=== PATIENT | male | born 1955 | race Caucasian/White ===

== ENCOUNTER 2023-11-03 08:19 | Outpatient (CLI) | payer MEDICARE, SELFPAY ==
--- NOTE | ~2023-11-03 | CT_ITS ---
EXAMINATION: CT sinus wo con DATE: 11/03/2023 08:38 INDICATION: Cough TECHNIQUE: Computed tomography (CT) of the paranasal sinuses was performed without intravenous contra st. The dose-length product was 295.03 mGy-cm. Automated exposure control and iterative reconstructio n technique were employed. COMPARISON: None FINDINGS: No significant mucosal thickening. No air-fluid levels. No mucoperiosteal reaction. Leftwar d nasal septal deviation. Ostiomeatal units are patent. Mastoids are pneumatized. IMPRESSION: 1. No significant sinus disease. Reviewed, dictated and finalized at location B.
== END 2023-11-03 08:20 | disposition home or self-care (01) ==
LOC: ANHIMG 08:24
PROVIDERS: PCP Physician Assistant Medical; Visit Provider Physician Assistant Medical
DX: R05.9 Cough, unspecified (principal); J32.9 Chronic sinusitis, unspecified
CPT/HCPCS: 70486

== ENCOUNTER 2025-02-28 07:10 | Day surgery (SDC) | payer MEDICARE, SELFPAY ==
[2025-02-19 14:08] VITALS: BMI 30.4
--- NOTE | 2025-02-19 14:19 | PC.NURSE ---
Spoke with _SPOUSE/PATIENT_ regarding medication _ELIQUIS. _They verbalizes understanding that the last dose is to be taken on 02/25/2025 and the Endoscopist will instruct them when to restart after the procedure.
--- OUTSIDE RECORDS SUMMARY | 2025-02-28 07:16 | XMS_ITS | Clinical Summary ---
Author Organization [facility] Address Formerly [facility] [place] [address] Care Team Providers Care Sign Painter Helper Name Role Phone Suki Duval PA-C Primary Care Provider [phone] Allergies No known active allergies Medications diclofenac EC (VOLTAREN) 75 MG tablet Take 1 tablet (75 mg total) by mouth daily. 3 Active Pyh-Okp-RdMc-Me Vn-GQrv-Mpw-Uva (DIUREX OR) Active lisinopril (PRINIVIL) 5 MG tablet Take 1 tablet (5 mg total) by mouth daily. Active montelukast (SINGULAIR) 10 MG tablet Take 1 tablet (10 mg total) by mouth daily. 4 Active fluticasone propionate (FLONASE) 50 MCG/ACT nasal spray 4 Active ELIQUIS 5 MG tablet PLEASE SEE ATTACHED FOR DETAILED DIRECTIONS 4 Active Active Problems Problem Noted Date Diagnosed Date Chronic deep vein thrombosis (DVT) of femoral vein of left lower extremity ([facility]) 09/13/2022 Bilateral impacted cerumen 05/05/2021 Sensorineural hearing loss (SNHL) of both ears 1 Immunizations Immunization Administration Dates Next Due Influenza (Generic) 07/27/2020 PFIZER COVID-19 (ORIGINAL FO RMULATION, PURPLE CAP) mRNA, LNP-S, PF, 30 MCG/0.3 ML DOSE 03/12/2021,02/18/2021 Shingrix 07/27/2020 Tdap (Boostrix) 01/20/2023 Social History Tobacco Use Types Packs/Day Years Used Date Smoking Tobacco: Never Smokeless Tobacco: Never Tobacco Cessation:Counseling Given: Not Answered Alcohol Use Standard Drinks/Week Comments Yes 5.3 (1 standard drink = 0.6 oz p ure alcohol) Sex and Gender Information Value Date Recorded Sex Assigned at Not on file Legal Sex Male 7:05 PM CDT Gender Identity Not on file Sexual Orientation Not on file Last Filed Vital Signs Vital Sign Reading Time Taken Comments Blood Pressure 127/80 12/06/2023 9:17 AM CDT Pulse 88 12/06/2023 9:17 AM CDT Temperature 36.8 C (98.2 F) 11/20/2023 3:06 PM CDT Respiratory Rate 18 11/20/2023 3:06 PM CDT Oxygen Saturation 98% 11/20/2023 3:06 PM CDT Inhaled Oxygen Concentration - - Weight 112 kg (247 lb) 12/06/2023 9:17 AM CDT Height 182.9 cm (6') 12/06/2023 9:17 AM CDT Body Mass Index 33.5 12/06/2023 9:17 AM CDT Plan of Treatment Upcoming Encounters Date Type Department Care Team (Late st Contact Info) Description 03/19/2025 10:30 AM CDT Office Visit [facility] [id number] [place] [phone] Mitchell Byers MD [address] [id number] Health Maintenance Due Date Last Done Comments Colorectal Cancer Screening Colonoscopy (10 Years) 1955 Hepatitis C 10/20/1973 Pneumococcal Vaccine: 50+ Years (1 of 1 - PCV) 10/20/2005 RSV Immunization or 60+ Years (1 - Risk 60-74 years 1-dose series) 2015 Zoster Vaccines (2 of 2) 09/21/2020 07/27/2020 Annual Medicare Wellness Visit 10/20/2020 COVID-19 Vaccine (3 - 2023-2 5 season) 2024 03/12/2021, 02/18/2021 DTaP, Tdap and Td Vaccines ( 2 - Td or Tdap) 01/20/2033 01/20/2023 Meningococcal B Vaccine Aged Out No l onger eligible based on patient's age to complete this topic Meningococcal Vaccine Aged Out No star hattie eligible based on patient's age to complete this topic RSV Immunizations Under 20 Months Aged Out No longer eligible b ased on patient's age to complete this topic Insurance MEDICARE AETNA Care Teams Sign Painter Helper Relationship Specialty Start Date End Date Suki Duval PA-C [address] [place] [address] [address] [place] [address] PCP - General PHYSICIAN PIGGERY WORKER 08/05/22
--- OUTSIDE RECORDS SUMMARY | 2025-02-28 07:16 | XMS_ITS | Encounter Summary ---
Author Organization [facility] Address [address] [place] [address] Care Team Providers Care Press Operator Automatic Name Role Phone Suki Duval PA-C Primary Care Provider [phone] Encounter Details Date Type Department Care Team (Late st Contact Info) Description 10/27/2022 [facility] [place] [address] [facility] [place] [address] Suki Duval PA-C [address] [place], [place] [id number] Social History Tobacco Use Types Packs/Day Years Used Date Smoking Tobacco: Never Assessed Sex and Gender Information Value Date Recorded Sex Assigned at Not on file Legal Sex Male 7:05 PM CDT Gender Identity Not on file Sexual Orientation Not on file COVID-19 Exposure Response Date Recorded In the last 10 days, have yo u been in contact with someone who was confirmed or suspected to have Coronavirus/COVID-19? No / Unsure 2022 7:46 AM CDT documented as of this encounter Plan of Treatment Upcoming Encounters Date Type Department Care Team (Late st Contact Info) Description 03/19/2025 10:30 AM CDT Office Visit [facility] [address] [place] [phone] Mitchell Byers MD [id number] [place] [address] documented as of this encounter Visit Diagnoses Not on filedocumented in this encounter Care Teams Press Operator Automatic Relationship Specialty Start Date End Date Suki Duval PA-C [address] [place] [address] [address] [place] [address] PCP - General PHYSICIAN CLINICAL HAEMATOLOGIST 08/05/22 documented as of this encounter
--- OUTSIDE RECORDS SUMMARY | 2025-02-28 07:16 | XMS_ITS | Continuity of Care Document ---
Author Organization [facility] Address [address] [facility] [address] [place] [address] Phone Care Team Providers Care Medical Nurse Name Role Phone Geraldo Hewitt MD Unavailable Unavailable Medications Medication Instructions Dosage Effective Dates (start - stop) Status Comments Le Roy 7.5 mg-325 mg tablet take 1 to 2 tablets by oral route every 6 hours as needed for pain - Active Le Roy 7.5 mg-325 mg tablet take 1 to 2 tablets by oral route every 6 hours as needed for pain - No Longer Active Advance Directives Directive Yes / No Effective Date File Name No Information Encounters Encounter Description Practice Location Reason(s) For Visit Diagnoses Date Provider Providers Copied on Encounter [facility], [address] [place] [address], [facility], tel:[phone] [facility] No Information 4 Marcelina Chow. [address] [place] [address], [id number] . tel: [phone] [facility], [address] [place] [address], [facility], tel:[phone] [facility] No Information 4 Marcelina Chow. [address] [place] [address], [id number] . tel: [phone] Family History Family Member Type Diagnosis Age At Onset No Information Payers Payer name Insurance type Covered alliance party ID Authoriza tion(s) No Information Social History Type Description Quantity Date Captured Comments Sex Male Smoking Status No Information Chief Complaint And Reason For Visit No Information Reason For Referral Reason For Referral No Information History Of Present Illness Encounter Date Complaint History Of Prese nt Illness No Information Functional Status Date Functional Assessmen t No Information Instructions Date Instruction Additional Infor mation No Information Assessments Type Assessment Date No Information Patient Care Teams Name Effective Dates (start - stop) Status Members No Information
--- OUTSIDE RECORDS SUMMARY | 2025-02-28 07:16 | XMS_ITS | Clinical Summary ---
Author Organization [facility] Address [address] [place] [address] Care Team Providers Care Space Engineer Name Role Phone Dawson Ortiz MD Primary Care Provider [phone] Allergies No known active allergies Medications No known medications Active Problems Problem Noted Date Diagnosed Date Sensorineural hearing loss (SNHL) of both ears 1 Bilateral impacted cerumen 05/05/2021 Surgical History Surgery Date Site/Laterality Comments BACK SURGERY ARM SURGERY Right LASIK LUMBAR FUSION Medical History Medical History Date Comments Hypertension Social History Tobacco Use Types Packs/Day Years Used Date Smoking Tobacco: Never Smokeless Tobacco: Never Personal Safety Answer Date Recorded Getting School Help Needed Not on file 09/10 Sex and Gender Information Value Date Recorded Sex Assigned at Not on file Legal Sex Male 1:34 AM AMPOULE EXAMINER Gender Identity Not on file Sexual Orientation Not on file Obstetrics History Last Filed Vital Signs Vital Sign Reading Time Taken Comments Blood Pressure - - Pulse - - Temperature 36.8 C (98.2 F) 05/04/2021 3:03 PM CDT Respiratory Rate - - Oxygen Saturation - - Inhaled Oxygen Concentration - - Weight 111.1 kg (245 lb) 05/04/2021 3:03 PM CDT Height 182.9 cm (6') 05/04/2021 3:03 PM CDT Body Mass Index 33.23 05/04/2021 3:03 PM CDT Plan of Treatment Not on file Insurance MEDICARE AET SENIOR SUPPLEMENT MEDICARE AET SENIOR SUPPLEMENT Care Teams Space Engineer Relationship Specialty Start Date End Date Dawson Ortiz MD [address] [place] [address] PCP - General Internal Medicine 04/21/21
[2025-02-28 12:41] VITALS: BP 157/82; PULSE 64; RESP 16; TEMP 36.6; O2SAT 99; BMI 44.5
[2025-02-28] MEDS: LACTATED RINGERS 1,000 ML 150 ML IV CONT (12:54)
--- NOTE | 2025-02-28 13:18 | WPDANESEPPF ---
Anes - Initial Pre Proc Eval Procedure: Operation Date: 02/28/25 13:30 Proposed Procedures p Colonoscopy - Luis A Cedeno MD Date/Time: 02/28/25 13:18 Surgeon: Luis A Cedeno MD Pre Op Diagnosis: Other fecal abnormalities Patient Data Age: 69 Gender: M Height: 1.52 m Weight: 103.4 kg Last Vital Signs Temp 36.6 C 02/28/25 12:41 Pulse 64 02/28/25 12:41 Resp 16 02/28/25 12:41 BP 157/82 H 02/28/25 12:41 Pulse Ox 99 02/28/25 12:41 O2 Del Method Room Air 02/28/25 12:41 Allergies Allergy/AdvReac Type Severity Reaction Status Date / Time sulfamethoxazole (From AdvReac Severe Rash Verified 02/28/25 12:39 Bactrim) trimethoprim (From Bactrim) AdvReac Severe Rash Verified 02/28/25 12:39 Home Medications ?Medication ?Instructions ?Recorded ?Confirmed ?Type multivitamin 1 tablet PO DAILY 05/17/22 02/28/25 History omega 5-djb-has-fish oil 1,000 mg 2 cap PO DAILY 10/20/23 02/28/25 History (120 mg-180 mg) capsule (Fish Oil) cetirizine 10 mg tablet (Zyrtec) 10 mg PO DAILY PRN allergy 12/04/23 02/19/25 Rx symptoms #90 tabs fluticasone propionate 50 2 spray intranasal DAILY #18 mL 12/04/23 02/19/25 Rx mcg/actuation nasal spray,suspension (Flonase Allergy Relief) lisinopril 10 mg tablet 10 mg PO DAILY #90 tabs 11/27/24 02/28/25 Rx apixaban 5 mg tablet (Eliquis) 5 mg PO BID #180 tabs 01/21/25 02/28/25 Rx oxycodone-acetaminophen 5 mg-325 1 tablet PO TID PRN pain #50 tabs 02/21/25 02/28/25 Rx mg tablet Patient hx anesthesia problems: none Family hx anesthesia problems: none Results Review: All pre-operative results and documents have been reviewed as part of the pre-operative evaluation. [facility] Past Medical History Medical History Arthritis Hypertension Left leg DVT 05/14/22 Surgical History Surgical History History of back surgery L4-L5 fusion, [place] bap around 1993 Family History Family History Mother Diabetes mellitus Father Hypertension Social History Social History Social History: 04/24/24 Patient declined SDOH Smoking status: Never smoker Alcohol intake: current Drinks per week: 1 Substance use: never Substance use type: does not use Lack of Transportation: No Lack of Food: Never True Current Housing: I Have Housing Concerned About Future Housing: No Difficulty Paying Gas/Electric Bills: No Difficulty Paying for Meds: No Currently Unemployed: No Education: High School Diploma/GED Difficulty w/ Childcare or Family Care: No Living arrangements: with family Occupation/Education: retired Gender identity (if verbalized by the patient): Male Sexual Orientation (if Verbalized by the Patient): Straight or Heterosexual Anes - Eval Final PreProcedure Day of Procedure 02/28/25 13:18 Patient weight: morbidly obese Heart: regular rate and rhythm Lungs: clear to auscultation Airway: Mallampati scale class III Neurological: alert and oriented Last oral intake: >/= 8 hours ASA classification: III Emergent: no Anesthetic plan: proceed Anesthesia type and monitoring: general GIVS and standard monitoring Results Review: All pre-operative results and documents have been reviewed as part of the pre-operative evaluation. Informed Consent: The patient's anesthetic plan and its attendant risks and benefits were discussed with the patient/family/POA. Questions were solicited and answers provided to the satisfaction of the patient/family/POA.
--- NOTE | 2025-02-28 13:18 | PM.HPGS ---
History of Present Illness History of Present Illness Consent: Risks, benefits, and alternatives have been discussed and questions answered. Patient agrees to proceed with procedure. Chief complaint: Other fecal abnormalities Narrative: Ambrocio Espinal is a 69 year old male here for screening colonoscopy, last one about 14 years ago, had + cologuard now Review of Systems Review of Systems: All systems reviewed & are unremarkable except as noted in HPI and below PMFSH Past Medical History Medical History (Updated 02/28/25 @ 13:19 by Luis A Cedeno MD) Positive colorectal cancer screening using Cologuard test Arthritis Hypertension Left leg DVT 05/14/22 Surgical History Surgical History History of back surgery L4-L5 fusion, [place] bap around 1993 Family History Family History Mother Diabetes mellitus Father Hypertension Social History Social History Social History: 04/24/24 Patient declined SDOH Smoking status: Never smoker Alcohol intake: current Drinks per week: 1 Substance use: never Substance use type: does not use Lack of Transportation: No Lack of Food: Never True Current Housing: I Have Housing Concerned About Future Housing: No Difficulty Paying Gas/Electric Bills: No Difficulty Paying for Meds: No Currently Unemployed: No Education: High School Diploma/GED Difficulty w/ Childcare or Family Care: No Living arrangements: with family Occupation/Education: retired Gender identity (if verbalized by the patient): Male Sexual Orientation (if Verbalized by the Patient): Straight or Heterosexual Meds Home Medications and Allergies Home Medications ?Medication ?Instructions ?Recorded ?Confirmed ?Type multivitamin 1 tablet PO DAILY 05/17/22 02/28/25 History omega 1-wox-iqo-fish oil 1,000 mg 2 cap PO DAILY 10/20/23 02/28/25 History (120 mg-180 mg) capsule (Fish Oil) cetirizine 10 mg tablet (Zyrtec) 10 mg PO DAILY PRN allergy 12/04/23 02/19/25 Rx symptoms #90 tabs fluticasone propionate 50 2 spray intranasal DAILY #18 mL 05/20/24 08/06/25 Rx mcg/actuation nasal spray,suspension (Flonase Allergy Relief) lisinopril 10 mg tablet 10 mg PO DAILY #90 tabs 11/27/24 02/28/25 Rx apixaban 5 mg tablet (Eliquis) 5 mg PO BID #180 tabs 01/21/25 02/28/25 Rx oxycodone-acetaminophen 5 mg-325 1 tablet PO TID PRN pain #50 tabs 02/21/25 02/28/25 Rx mg tablet Allergies Allergy/AdvReac Type Severity Reaction Status Date / Time sulfamethoxazole (From AdvReac Severe Rash Verified 02/28/25 12:39 Bactrim) trimethoprim (From Bactrim) AdvReac Severe Rash Verified 02/28/25 12:39 Vital Signs Vital Signs - 24 hr 02/28/25 12:41 Temperature 97.8 F Pulse Rate 64 Respiratory Rate 16 Blood Pressure 157/82 H Pulse Oximetry 99 Oxygen Delivery Room Air Exam Const: General: comfortable and no acute distress HENMT: Face/Nose/Sinus: Normal nares present Eyes: General: appearance normal, both eyes and all related structures Neck: Neck: no JVD Resp: Auscultation: clear to auscultation bilaterally Cardio: Rate: regular rate Rhythm: regular rhythm GI: Inspection: non-distended GI Palp: Yes Soft to palpation Skin: General skin exam: normal color Neuro: Speech: normal speech Extrem: General: normal to inspection Psych: Mental Status: mental status grossly normal Assessment and Plan Assessment and plan (1) Positive colorectal cancer screening using Cologuard test: Code(s): R19.5 - Other fecal abnormalities Status: Acute Assessment and Plan: colonoscopy
[2025-02-28 13:35] VITALS: BP 116/83; PULSE 77; RESP 24; O2SAT 96
--- NOTE | 2025-02-28 13:37 | S_PTH ---
PATIENT: Ambrocio Espinal LOC: [facility]#:[id number] AGE/SX: 69/M ROOM: RE02/28/[address]: Luis A Cedeno MD : 1955 BED: DIS: 02/28/2025 SPEC #: [id number] RECD: 03/03/25 08:26 STATUS: SHERRI REJane #: [id number] MOUNA: 02/28/25 13:[address]: Luis A Cedeno DEPT: [facility] Surgical RECD BY: Julianne Agrawal ENTERED: 03/03/25 08:26 SP TYPE: Surgical OTHR DR: Suki Duval PA-C Tissues: A - Colon Polypectomy Procedures: Hematoxylin and Eosin Stain Gross and Microscopic Level 4
[2025-02-28 13:45] VITALS: BP 130/74; PULSE 62; RESP 20; O2SAT 96
[2025-02-28 13:55] VITALS: BP 139/78; PULSE 74; RESP 23; O2SAT 98
== END 2025-02-28 14:06 | disposition home or self-care (01) ==
PROVIDERS: PCP Physician Assistant Medical; Referring Provider Physician Assistant Medical; Visit Provider Internal Medicine Gastroenterology
PROC: 0DJD8ZZ Inspection of Lower Intestinal Tract, Via Natural or Artificial Opening Endoscopic (ICD-10-PCS; CPT 45378; principal; 2025-02-28 13:30)
DX: R19.5 Other fecal abnormalities (principal); D12.5 Benign neoplasm of sigmoid colon; K64.8 Other hemorrhoids; I10 Essential (primary) hypertension; M19.90 Unspecified osteoarthritis, unspecified site; E66.01 Morbid (severe) obesity due to excess calories; Z68.41 Body mass index [BMI] 40.0-44.9, adult; Z79.01 Long term (current) use of anticoagulants; Z79.891 Long term (current) use of opiate analgesic; Z98.1 Arthrodesis status; Z86.718 Personal history of other venous thrombosis and embolism
CPT/HCPCS: 45385; 88305; J2704; J7120